=== PATIENT | female | born 1980 | race Two or more races ===

== ENCOUNTER 2024-09-21 12:47 | Inpatient (IN) | payer MEDICAID, OTHER ==
[~2024-09-21] VITALS: Ht 154.9 cm; Wt 109.0 kg
[2024-09-21] VITALS (11 sets, daily range): BP systolic 102–119; BP diastolic 67–86; PULSE 87–112; RESP 17–20; TEMP 97.7–98.4; O2SAT 91–100
--- NOTE | 2024-09-21 13:13 | ECG ---
[facility] Test Date: 2024-09-21 Test Time: 13:07:47 Pat Name: JENNA BANEGAS Department: ER Room: [address] [place] [address] Gender: F Dope Pourer: SOURAV : 1980 Requested By: FOUZIA MONTEIRO Order Number: [id number] Reading MD: Simón Dominguez Measurements Intervals [place] Rate: 112 P: 29 GA: 133 QRS: -83 QRSD: 96 T: -14 QT: 337 QTc: 460 Interpretive Statements Sinus tachycardia Probable left atrial enlargement Left anterior fascicular block Low voltage, precordial leads RSR' in V1 or V2, right VCD or RVH Consider anterior infarct Borderline T abnormalities, inferior leads Electronically Signed On 09-23-2024 19:26:58 PDT by Simón Dominguez Please click the below link to view image of tracing.
--- NOTE | 2024-09-21 13:17 | ED.PDOC ---
SOB-HPI HPI Comments HPI: Poor Historian. Full session dialysis this morning. Denies sick contacts. Past Medical History: Lazy eyes, Past Surgical History: HPI: 43y F who presents to the ED for chief complaint of shortness of breath - pt states she has been having shortness of breath, cough, and nasal congestion for the past 10 days - pt states she has history of COPD on 2 L via nc but in the ED, is noted to have 02 sat ranging between 84 to 88% - pt was placed on 4 L via nc and 02 sat jose to 93% - pt otherwise states she as CKD and gets dialysis Tues, Th and Sat and states she got her fill dialysis today and had 3 L removed today - pt denies any sick contacts at this time - pt otherwise denies any other symptoms at this time Past Medical History: bilateral lazy eyes, HTN, asthma, COPD, CKD Past Surgical History: appendectomy, 2x c-sections Social History: Denies ETOH, smoking, and drug use. Medications: Allergies: denies REVIEW OF SYSTEMS: CONSTITUTIONAL: Denies acute: fever, diaphoresis, chills, generalized weakness. HEAD: Denies acute: headache, photophobia Eyes: Denies acute: Double vision, vision loss, eye pain, eye discharge. EARS: Denies acute: tinnitus, hearing loss, ear discharge, ear pain, THROAT: Denies acute: sore throat, swelling, difficulty swallowing , pain with swallowing, change in voice. NECK: Denies acute: neck pain, neck swelling, stiff neck. HEART: Denies acute : , palpitations, LUNGS: Denies acute: wheezing, hemoptysis ABDOMEN: Denies acute: abdominal pain, Nausea, Vomiting, diarrhea, melena , hematemesis, hematochezia SKIN: Denies acute: rash, redness, lesions, itchiness. EXTREMITIES: Denies acute: calf pain, numbness, tingling, weakness, denies pain in extremity. Denies acute: Low back pain. Neuro: Denies acute: focal neurological deficit, motor or sensory focal neurological deficit, tremors, seizure like activity, confusion, dizziness, change in mental status, loss of bowel or bladder function, cauda equina like symptoms. : Denies acute: dysuria, hematuria, flank pain, increase in urinary frequency. PSYCH: Denies acute: hallucination, suicidal ideation, homicidal ideation. FEMALE: Denies acute: abnormal vaginal bleeding, foul odor, unusual discharge. PHYSICAL EXAM: General: ---mild-----acute distress, awake and alert. Head: normocephalic, atraumatic. Neck: supple, trachea is midline, no swelling. Throat: Normal phonation. Eyes:, no erythema, no purulent discharge, no proptosis, no icterus. Heart: regular tachycardic, no significant murmur appreciated. Lungs: no apparent respiratory distress, Able to speak in full sentences. No wheezing, no rhonchi, no crackles. No stridors Clear to auscultation bilaterally. Abdomen: non tender to palpation, non distended, soft, no guarding, no rebound, + bowel sounds. Noted left anterior chest wall dialysis catheter Neuro: Awake, Alert, oriented to name, self, situation, follows commands GCS=15. Speech is normal. Skin: no petechia, no purpura, no cyanosis, non-pale, not jaundice. Lower extremities: --no - Pitting edema no deformity, no focal swelling, no calf TTP. Makes eye contact. moves all four extremities. Face: no apparent facial droop. ED COURSE: DISCLAIMER: This medical document was created using an electronic medical record system with voice recognition software and computerized dictation system. Although this document has been carefully reviewed, there might still be some phonetic and typographical errors. Occasional wrong-word or "sound-alike" substitutions may have occurred due to the inherent limitations of voice recognition software. These areas are purely typographical due to imperfections of the software programs and do not reflect any compromise in the patient's medical care. Please read the chart carefully and recognize, using context, where these substitutions have occurred. Chief Complaint: Shortness of Breath Time Seen by MD: 13:06 Reviewed notes: Medications, Allergies Information Source: Patient Mode of Arrival: Ambulatory EKG EKG : Pulse Rate (adult): 112 [place]: Normal Cardiac Rhythm: ST Block: None Hypertrophy: None ST: Normal Was a procedure done? Was a procedure done?: No X-Ray, Labs, Meds, VS Vital Signs Date Time Temp Pulse Resp B/P (MAP) Pulse Ox O2 Delivery O2 Flow Rate FiO2 09/21/24 13:30 18 96 Nasal Cannula* 4 36 09/21/24 13:07 112 09/21/24 13:00 98.4 125 24 119/86 (97) 93 98.4 Lab Test 09/21/24 14:06 09/21/24 13:18 09/21/24 13:09 09/21/24 13:01 Range/Units Troponin I High Sensitivity 14 12 </=34 ng/L Sodium Level 136 136-145 mmol/L Potassium Level 4.3 3.5-5.1 mmol/L Chloride Level 100 98-107 mmol/L Carbon Dioxide Level 22 20-31 mmol/L Anion Gap 14 5-15 Blood Urea Nitrogen 38 H 9-23 mg/dL Creatinine 5.71 H 0.550-1.02 mg/dL Glomerular Filtration Rate Calc 9 >90 mL/min BUN/Creatinine Ratio 6.7 L 10.0-20.0 Serum Glucose 186 H 74-106 mg/dL Calcium Level 8.9 8.7-10.4 mg/dL Magnesium Level 1.7 1.6-2.6 mg/dL Total Bilirubin 0.7 0.2-1.0 mg/dL Aspartate Amino Transferase (AST) 12 L 13-40 U/L Alanine Aminotransferase (ALT) 11 7-40 U/L Alkaline Phosphatase 112 46-116 U/L Total Protein 7.7 5.7-8.2 g/dL Albumin 3.8 3.2-4.8 g/dL POC Glucose 193 H 70-106 mg/dl White Blood Count 20.7 H 4.4-10.8 10^3/uL Red Blood Count 5.08 4.0-5.20 10^6/uL Hemoglobin 15.9 12.2-16.2 g/dL Hematocrit 48.3 H 36.0-46.0 % Mean Corpuscular Volume 95.1 80.0-100.0 fL Mean Corpuscular Hemoglobin 31.2 28.0-32.0 pg Mean Corpuscular Hemoglobin Concent 32.8 32.0-36.0 g/dL Red Cell Distribution Width 15.1 H 11.8-14.3 % Platelet Count 376 140-450 10^3/uL Mean Platelet Volume 7.7 6.9-10.8 fL Neutrophils (%) (Auto) 92.3 H 37.0-80.0 % Lymphocytes (%) (Auto) 4.3 L 10.0-50.0 % Monocytes (%) (Auto) 3.0 0.0-12.0 % Eosinophils (%) (Auto) 0.1 0.0-7.0 % Basophils (%) (Auto) 0.3 0.0-2.0 % Neutrophils # (Auto) 19.1 H 1.6-8.6 10 ^3/uL Lymphocytes # (Auto) 0.9 0.4-5.4 10 ^3/uL Monocytes # (Auto) 0.6 0-1.3 10 ^3/uL Eosinophils # (Auto) 0 0-0.8 10 ^3/uL Basophils # (Auto) 0.1 0-0.2 10 ^3/uL Nucleated Red Blood Cells 0.0 % Hemoglobin A1c 6.0 H <5.7 % A1C B-Type Natriuretic Peptide 298.01 0-100 pg/mL Current Medications Medications (Trade) Dose Ordered Sig/Linden Route Start Time Stop Time Status Last Admin Albuterol (Ventolin Medneb) 2.5 mg ONCE ONCE NEB 09/21/24 13:15 09/21/24 13:16 DC 09/21/24 13:28 Ipratropium [place] (Atrovent Medneb) 1 mg ONCE ONCE NEB 09/21/24 13:15 09/21/24 13:16 DC 09/21/24 13:28 Methylprednisolone Sodium Succinate (Solu Medrol) 125 mg ONCE ONCE IV 09/21/24 13:15 09/21/24 13:16 DC 09/21/24 15:16 Piperacillin Sod/ Tazobactam Sod 100 ml @ 100 mls/hr ONCE ONCE IV 09/21/24 14:00 09/21/24 15:09 DC 09/21/24 15:17 [place] [id number] Ph: [phone] DIAGNOSTIC IMAGING Diagnostic Imaging Report : [id number] Signed PATIENT: JENNA BANEGASACCT: [id number] UNIT: [id number] : 1980 LOC: ER ROOM / BED: / AGE / SEX: 43 / F ADM STATUS: REG ER SERVICE 1311 ORDERING PHYSICIAN: FOUZIA MONTEIRO DO PROCEDURE(s): CXRP - CHEST PORTABLE REASON: sob ORDER NUMBER(s): [id number], ACCESSION NUMBER(s): [id number] CHEST RADIOGRAPH Indication: sob Technique: Single frontal view of the chest was obtained Comparison: None FINDINGS: Lines and Tubes: Hemodialysis catheter in place from the left internal jugular vein with the tip at the cavoatrial junction. Lungs: Left lower lobe airspace disease and pleural thickening. Correlate with prior studies Pleura: No effusion. No pneumothorax. Cardiomediastinal contours: Unremarkable Bones: No acute osseous abnormality. IMPRESSION: 1. Hemodialysis catheter in place in the left internal jugular vein with the tip at the cavoatrial junction. 2. Left lower lobe airspace disease and pleural thickening. Can not distinguish acute versus chronic disease without comparison films. ATED BY: ERNIE WILLETT Jr., DO DICTATED DATE/TIME: 09/21/24 1458 SIGNED BY: ERNIE WILLETT Jr., SIGNED DATE/TIME: 09/21/248 CC: Patient Education/Counseling: Diagnosis, Treatment Family Education/Counseling: No Family Present SEPSIS Sepsis Screen Physician Orders Pre[employer]ytics Team Lead (09/21/24 ) Urinalysis (09/21/24 13:11) Chest Portable (09/21/24 13:11) Blood Culture (09/21/24 13:53) Vital Signs Date Time Temp Pulse Resp B/P (MAP) Pulse Ox O2 Delivery O2 Flow Rate FiO2 09/21/24 13:30 18 96 Nasal Cannula* 4 36 09/21/24 13:07 112 09/21/24 13:00 98.4 125 24 119/86 (97) 93 98.4 Laboratory Tests Test 09/21/24 13:01 White Blood Count 20.7 10^3/uL (4.4-10.8) H Medications Medications Dose Ordered Sig/Linden Route Start Time Stop Time Status Last Admin Dose Admin Albuterol 2.5 mg ONCE ONCE NEB 09/21/24 13:15 09/21/24 13:16 DC 09/21/24 13:28 Ipratropium [place] 1 mg ONCE ONCE NEB 09/21/24 13:15 09/21/24 13:16 DC 09/21/24 13:28 Methylprednisolone Sodium Succinate 125 mg ONCE ONCE IV 09/21/24 13:15 09/21/24 13:16 DC 09/21/24 15:16 Piperacillin Sod/ Tazobactam Sod 100 ml @ 100 mls/hr ONCE ONCE IV 09/21/24 14:00 09/21/24 15:09 DC 09/21/24 15:17 Departure 1 Departure Time of Disposition: 13:52 Impression: Primary Impression: COPD exacerbation Additional Impression: Leukocytosis Disposition: ADMITTED INPATIENT Admit to: Tele Condition: Guarded Discharged With: Self Critical Care Note Critical Care Time?: No Heart Score Heart Score: Heart Score Response (Comments) Value History Slightly Suspicious 0 EKG Normal 0 Age <45 0 Risk Factors 1 or 2 risk factors 1 Troponin Normal limit 0 Total 1 I personally scribed for FOUZIA MONTEIRO DO ([email or web address]) on 09/21/24 at 13:17. Electronically submitted by Jeff Landa (Red Mapache). I personally scribed for FOUZIA MONTEIRO DO ([email or web address]) on 09/21/24 at 15:39. Electronically submitted by Jeff Landa (Red Mapache). I personally scribed for FOUZIA MONTEIRO DO ([email or web address]) on 09/21/24 at 21:46. Electronically submitted by Jeff Landa (Red Mapache). FOUZIA MONTEIRO DO Sep 21, 2024 13:17
[2024-09-21] MEDS: ALBUTEROL SULF 2.5 MG/0.5ML(0.5%) NEB SOLN NEB ONE (13:28)
[2024-09-21] MEDS: IPRATROPIUM BROM 0.5 MG/2.5ML INH SOL NEB ONE (13:28)
[2024-09-21 13:29] LABS: Hematocrit 48.3 % (36.0-46.0); Hemoglobin 15.9 g/dL (12.2-16.2); Mean Corpuscular Hemoglobin 31.2 pg (28.0-32.0); Mean Corpuscular Volume 95.1 fL (80.0-100.0); Nucleated Red Blood Cells % 0.0 %
[2024-09-21 13:50] LABS: Alanine Aminotransferase 11 U/L (7-40); Alkaline Phosphatase 112 U/L (46-116); Anion Gap 14 (5-15); BUN/Creatinine Ratio 6.7 (10.0-20.0); Calcium 8.9 mg/dL (8.7-10.4); Carbon Dioxide 22 mmol/L (20-31); Chloride 100 mmol/L (98-107); Magnesium 1.7 mg/dL (1.6-2.6); Potassium 4.3 mmol/L (3.5-5.1); Total Protein 7.7 g/dL (5.7-8.2)
[2024-09-21 13:51] LABS: Albumin 3.8 g/dL (3.2-4.8); Bilirubin, Total 0.7 mg/dL (0.2-1.0); Blood Urea Nitrogen 38 mg/dL (9-23); Glucose 186 mg/dL (74-106); Sodium 136 mmol/L (136-145)
--- NOTE | 2024-09-21 15:00 | DVH ---
CHEST RADIOGRAPH Indication: sob Technique: Single frontal view of the chest was obtained Comparison: None FINDINGS: Lines and Tubes: Hemodialysis catheter in place from the left internal jugular vein with the tip at t he cavoatrial junction. Lungs: Left lower lobe airspace disease and pleural thickening. Correlate with prior studies Pleura: No effusion. No pneumothorax. Cardiomediastinal contours: Unremarkable Bones: No acute osseous abnormality. IMPRESSION: 1. Hemodialysis catheter in place in the left internal jugular vein with the tip at the cavoatrial ju nction. 2. Left lower lobe airspace disease and pleural thickening. Can not distinguish acute versus chronic disease without comparison films.
[2024-09-21] MEDS: methylPREDNISolone SOD SUCC 125 MG/2 ML VL IV ONE (15:16)
[2024-09-21] MEDS: PIPERACILLIN-TAZOB 3.375GM 100 ML IV ONE (15:17)
[2024-09-21] MEDS ORDERED: DEXTROSE (50%) 50ML SYRG IV PRN (15:30)
[2024-09-21] MEDS ORDERED: ONDANSETRON HCL 4 MG/2 ML VIAL IV PRN (15:30)
[2024-09-21] MEDS ORDERED: ACETAMINOPHEN 325 MG TAB PO PRN (15:30)
[2024-09-21] MEDS ORDERED: HYDROcodone-ACET 5/325MG TAB PO PRN (15:30)
--- NOTE | 2024-09-21 15:33 | DVHHP2 ---
History of Present Illness Reason for Visit: Shortness of breath History of Present Illness Kathryn Hyman is a 43-year-old female with past medical history of hypertension, asthma, ESRD on HD (/), , and possible diabetes who presents to the ED with shortness of breath x 10 days. Patient reports that she saw her primary and was prescribed medications but has not yet picked them up. She also reports that she has been coughing up yellow phlegm for the last 5 days. She states that she is on continuous oxygen 2 L nasal cannula at home. Patient reports that when she does breathe in and out there is some discomfort in her chest but not chest pain. Patient also reports that she gets dialysis through [facility] and takes medications but does not know the names. Patient denies any recent sick contacts, recent trauma or injury, recent ingestion of spoiled food, recent travels, chest pain, fever, chills, lightheadedness, weakness, dizziness, abdominal pain, nausea, vomiting, diarrhea, or urinary symptoms. Cardiovascular: HTN Pulmonary: Asthma Renal/: Chronic renal failure Endocrine: Diabetes Past Surgical History: Family History: DM, Other (Mom and dad with diabetes. Mom with kidney failure.) Smoke: No ALCOHOL: none Drugs: None Lives: with Family Domestic Violence: Neg Review of Systems Respiratory: Shortness of breath Allergies: Coded Allergies: NO KNOWN ALLERGIES (Unverified , 09/21/24) Exam Vital Signs Vital Signs Date Time Temp Pulse Resp B/P (MAP) Pulse Ox O2 Delivery O2 Flow Rate FiO2 09/21/24 13:30 18 96 Nasal Cannula* 4 36 09/21/24 13:07 112 09/21/24 13:00 98.4 119/86 (97) 98.4 General Appearance: Alert, Oriented X3, Cooperative, mild distress HEENT: Atraumatic, PERRLA, EOMI Respiratory: Normal air movement Cardiovascular: Normal S1, Normal S2 Abdominal: Normal bowel sounds, Soft Extremities: Normal pulses Skin: No significant lesion Neuro: Normal gait, Normal speech, Strength at 5/5 X4 ext, Normal tone, Sensation intact Psych/Mental Status: Mental status NL, Mood NL Labs/Xrays Labs Test 09/21/24 14:06 09/21/24 13:18 09/21/24 13:09 7/12/25 13:01 Range/Units Troponin I High Sensitivity 14 </=34 ng/L Sodium Level 136 136-145 mmol/L Potassium Level 4.3 3.5-5.1 mmol/L Chloride Level 100 98-107 mmol/L Carbon Dioxide Level 22 20-31 mmol/L Anion Gap 14 5-15 Blood Urea Nitrogen 38 H 9-23 mg/dL Creatinine 5.71 H 0.550-1.02 mg/dL Glomerular Filtration Rate Calc 9 >90 mL/min BUN/Creatinine Ratio 6.7 L 10.0-20.0 Serum Glucose 186 H 74-106 mg/dL Calcium Level 8.9 8.7-10.4 mg/dL Magnesium Level 1.7 1.6-2.6 mg/dL Total Bilirubin 0.7 0.2-1.0 mg/dL Aspartate Amino Transferase (AST) 12 L 13-40 U/L Alanine Aminotransferase (ALT) 11 7-40 U/L Alkaline Phosphatase 112 46-116 U/L Total Protein 7.7 5.7-8.2 g/dL Albumin 3.8 3.2-4.8 g/dL POC Glucose 193 H 70-106 mg/dl White Blood Count 20.7 H 4.4-10.8 10^3/uL Red Blood Count 5.08 4.0-5.20 10^6/uL Hemoglobin 15.9 12.2-16.2 g/dL Hematocrit 48.3 H 36.0-46.0 % Mean Corpuscular Volume 95.1 80.0-100.0 fL Mean Corpuscular Hemoglobin 31.2 28.0-32.0 pg Mean Corpuscular Hemoglobin Concent 32.8 32.0-36.0 g/dL Red Cell Distribution Width 15.1 H 11.8-14.3 % Platelet Count 376 140-450 10^3/uL Mean Platelet Volume 7.7 6.9-10.8 fL Neutrophils (%) (Auto) 92.3 H 37.0-80.0 % Lymphocytes (%) (Auto) 4.3 L 10.0-50.0 % Monocytes (%) (Auto) 3.0 0.0-12.0 % Eosinophils (%) (Auto) 0.1 0.0-7.0 % Basophils (%) (Auto) 0.3 0.0-2.0 % Neutrophils # (Auto) 19.1 H 1.6-8.6 10 ^3/uL Lymphocytes # (Auto) 0.9 0.4-5.4 10 ^3/uL Monocytes # (Auto) 0.6 0-1.3 10 ^3/uL Eosinophils # (Auto) 0 0-0.8 10 ^3/uL Basophils # (Auto) 0.1 0-0.2 10 ^3/uL Nucleated Red Blood Cells 0.0 % B-Type Natriuretic Peptide 298.01 0-100 pg/mL CHEST RADIOGRAPH Indication: sob Technique: Single frontal view of the chest was obtained Comparison: None FINDINGS: Lines and Tubes: Hemodialysis catheter in place from the left internal jugular vein with the tip at the cavoatrial junction. Lungs: Left lower lobe airspace disease and pleural thickening. Correlate with prior studies Pleura: No effusion. No pneumothorax. Cardiomediastinal contours: Unremarkable Bones: No acute osseous abnormality. IMPRESSION: 1. Hemodialysis catheter in place in the left internal jugular vein with the tip at the cavoatrial junction. 2. Left lower lobe airspace disease and pleural thickening. Can not distinguish acute versus chronic disease without comparison films. SEPSIS Sepsis Screen Date sepsis recognized/suspect: Sep 21, 2024 Time Sepsis recognized/suspect: 1300 Recent Procedure: No On Antibiotic Therapy: No Respiratory Rate >20: Yes Heart Rate >90: Yes Temp<36 C (96.8 F) or >38.3 C: No SBP <90 or MAP <65 mmHG: No New Acute Mental Status Change: No Is the patient on CPAP, BIPAP,: No Physician Orders Stacker Straightener (09/21/24 ) Urinalysis (09/21/24 13:11) Chest Portable (09/21/24 13:11) Troponin-I Hs (09/21/24 16:11) Covid19 Antigen Lauren (09/21/24 ) Rapid Influenza A&B (09/21/24 13:52) Blood Culture (09/21/24 13:53) Vital Signs Date Time Temp Pulse Resp B/P (MAP) Pulse Ox O2 Delivery O2 Flow Rate FiO2 09/21/24 13:30 18 96 Nasal Cannula* 4 36 09/21/24 13:07 112 09/21/24 13:00 98.4 125 24 119/86 (97) 93 98.4 Laboratory Tests Test 09/21/24 13:01 White Blood Count 20.7 10^3/uL (4.4-10.8) H Medications Medications Dose Ordered Sig/Linden Route Start Time Stop Time Status Last Admin Dose Admin Albuterol 2.5 mg ONCE ONCE NEB 09/21/24 13:15 09/21/24 13:16 DC 09/21/24 13:28 2.5 MG Ipratropium [place] 1 mg ONCE ONCE NEB 09/21/24 13:15 09/21/24 13:16 DC 09/21/24 13:28 1 MG Methylprednisolone Sodium Succinate 125 mg ONCE ONCE IV 09/21/24 13:15 09/21/24 13:16 DC 09/21/24 15:16 125 MG Piperacillin Sod/ Tazobactam Sod 100 ml @ 100 mls/hr ONCE ONCE IV 09/21/24 14:00 09/21/24 15:09 DC 09/21/24 15:17 100 MLS/HR Assessment/Plan Assessment/Plan Assessment Acute on chronic respiratory failure likely due to pneumonia Acute on chronic asthma exacerbation Leukocytosis likely due to pneumonia Costochondritis ESRD on HD (T//) ?Diabetes Morbid obesity History of hypertension History of Plan Admit to [facility] IV antibiotics-ceftriaxone + azithromycin Zosyn given in ED BNP noted Chest x-ray noted Steroids Blood cultures Flu test COVID test Troponin noted EKG Mag level Hemoglobin A1c ISS and Accu-Cheks Diet DVT prophylaxis-not indicated patient ambulating PUD prophylaxis-not indicated no history of GERD or GI bleed Discussed plan of care with patient and nurse RN to recon medications Nephro consult Counseled patient on lifestyle modifications, diet, and exercise [id number] Preventive counseling healthy eating habits, physical activity, and regular checkups Plan discussed with: Patient Date of Service: Sep 21, 2024 Billing Provider: MORENA DELCID Common Visit Codes: [id number] INP/OBS CARE (HIGH) Secondary Visit Codes: [id number] COUNSELING IND MORENA DELCID Sep 21, 2024 15:33
[2024-09-21] MEDS: cefTRIAXone 1GM/50ML D5W 50 ML IV SCH (16:30)
[2024-09-21] MEDS: AZITHROMYCIN 500MG/ 250ML 250 ML IV SCH (16:55)
[2024-09-21 16:57] LABS: COVID19 ANTIGEN SOFIA FIA NEGATIVE (NEGATIVE)
[2024-09-21] MEDS: ACCU-CHEK COMFORT CURVE STRIP VI SCH (17:09)
[2024-09-21] MEDS: InsuLIN REG 1unit/0.01ml Soln (100units/ml) SC SCH (17:10)
[2024-09-21] MEDS: ALBUTEROL SULF 2.5 MG/0.5ML(0.5%) NEB SOLN NEB SCH (19:00)
[2024-09-21] MEDS: IPRATROPIUM BROM 0.5 MG/2.5ML INH SOL NEB SCH (19:00)
[2024-09-21] MEDS: methylPREDNISolone SOD SUCC 125 MG/2 ML VL IV SCH (21:29)
[2024-09-22] VITALS (18 sets, daily range): BP systolic 101–120; BP diastolic 66–90; PULSE 72–124; RESP 16–22; TEMP 96.4–98; O2SAT 91–98
[2024-09-22 06:07] LABS: Hematocrit 43.9 % (36.0-46.0); Hemoglobin 14.5 g/dL (12.2-16.2); Mean Corpuscular Hemoglobin 31.3 pg (28.0-32.0); Mean Corpuscular Volume 95.1 fL (80.0-100.0); Nucleated Red Blood Cells % 0.0 %
[2024-09-22 06:31] LABS: Alkaline Phosphatase 93 U/L (46-116); BUN/Creatinine Ratio 8.2 (10.0-20.0); Calcium 9.0 mg/dL (8.7-10.4); Chloride 99 mmol/L (98-107); Potassium 4.9 mmol/L (3.5-5.1); Total Protein 7.8 g/dL (5.7-8.2)
[2024-09-22 06:32] LABS: Alanine Aminotransferase < 9 U/L (7-40); Albumin 3.8 g/dL (3.2-4.8); Blood Urea Nitrogen 60 mg/dL (9-23); Glucose 181 mg/dL (74-106); Sodium 135 mmol/L (136-145)
[2024-09-22 06:33] LABS: Bilirubin, Total 0.2 mg/dL (0.2-1.0)
[2024-09-22 06:44] LABS: Anion Gap 16 (5-15); Carbon Dioxide 20 mmol/L (20-31)
--- NOTE | 2024-09-22 13:41 | DVHPN2 ---
Reviewed: Care Plan Changes from previous H/P or p: No Changes Respiratory: Shortness of breath Objective Vitals Vital Signs Date Time Temp Pulse Resp B/P (MAP) Pulse Ox O2 Delivery O2 Flow Rate FiO2 09/22/24 12:24 96.4 81 20 120/90 (100) 91 96.4 09/22/24 10:07 Nasal Cannula* 3 32 Intake/Output Intake and Output 09/22/24 07:00 Intake Total 650 ml Balance 650 ml Intake Oral 600 ml IV Total 50 ml # Voids 1 # Bowel Movements 1 Medications Current Medications Medications Dose Ordered Sig/Lind[place] Route Start Time Stop Time Status Last Admin Dose Admin Acetaminophen/ Hydrocodone Bitart 1 tab Q4HP PRN PO 09/21/24 15:30 Ondansetron HCl 4 mg Q4HP PRN IV 09/21/24 15:30 Acetaminophen 650 mg Q6HP PRN PO 09/21/24 15:30 Diagnostic Test (Pha) 1 strip ACHS 09/21/24 17:00 09/22/24 11:35 1 STRIP Insulin Human Regular ACHS SC 09/21/24 17:00 09/22/24 11:31 4 UNITS Dextrose 50 ml UD PRN IV 09/21/24 15:30 Ceftriaxone Sodium 50 ml @ 100 mls/hr DAILY@09 IV 09/21/24 15:30 09/22/24 09:31 100 MLS/HR Azithromycin 250 ml @ 125 mls/hr DAILY IV 09/21/24 15:30 09/22/24 11:35 125 MLS/HR Methylprednisolone Sodium Succinate 80 mg BID IV 09/21/24 22:00 09/22/24 09:31 80 MG Albuterol 2.5 mg Q4HWA NEB 09/21/24 18:00 09/22/24 10:07 2.5 MG Ipratropium [place] 0.5 mg Q4HWA NEB 09/21/24 18:00 09/22/24 10:07 0.5 MG Laboratory Results Laboratory Tests 09/22/24 05:14 Chemistry Test 09/22/24 05:14 Albumin 3.8 g/dL (3.2-4.8) Calcium Level 9.0 mg/dL (8.7-10.4) Total Protein 7.8 g/dL (5.7-8.2) LFT Test 09/22/24 05:14 Alanine Aminotransferase (ALT) < 9 U/L (7-40) Alkaline Phosphatase 93 U/L (46-116) Aspartate Amino Transferase (AST) < 8 U/L (13-40) L Total Bilirubin 0.2 mg/dL (0.2-1.0) Labs and/or images reviewed: Labs reviewed by me, Image(s) reviewed by me Assessment/Plan Assessment/Plan Sepsis with the elevated white count 55113 hypoxia secondary to pneumonia Acute hypoxic respiratory failure oxygen by nasal cannula Community-acquired left lower pneumonia Gram-positive/Gram-negative: Rocephin azithromycin ESRD on hemodialysis: Consult by Hypertension Asthma Diabetes type 2 Blanka test negative Flu test negative Time spent 70 minutes Advanced care planning time 20 minutes Patient is full code Plan discussed with: Patient Date of Service: Sep 22, 2024 Billing Provider: WESLEY GORDON MD Common Visit Codes: [id number] CARE 30-74 MIN WESLEY GORDON MD Sep 22, 2024 13:41
[2024-09-22] MEDS: ALBUMIN 25% 100 ML IV STA (16:24)
[2024-09-22] MEDS: SODIUM CHL 0.9% 1000 ML BAG XX ONE (16:38)
--- NOTE | 2024-09-22 19:48 | DVHINCON2 ---
Date of service: Sep 22, 2024 Referring Physician jesús Reason for Consultation esrd History of Present Illness 43 years old female with past medical history of hypertension, ESRD on dialysis, asthma, chronic hypoxic respiratory failure presented with chief complaints of shortness of breath Patient had a full dialysis treatment on Monday as outpatient she reports cough, also reports left-sided chest pain Past Medical History As per HPI Past Surgical History As per HPI Allergies: Coded Allergies: NO KNOWN ALLERGIES (Unverified , 09/21/24) Current Medications Current Medications Medications (Trade) Dose Ordered Sig/Linden Route PRN Reason Start Time Stop Time Status Last Admin Methylprednisolone Sodium Succinate (Solu Medrol) 80 mg BID IV 09/21/24 22:00 09/22/24 09:31 Albumin Human 100 ml @ 100 mls/hr Q15MP STAT IV 09/22/24 16:24 09/22/24 17:23 DC Social History Denies any Review of Systems As per HPI H&P Exam Vital Signs/I&O Vital Sign Date Time Temp Pulse Resp B/P (MAP) Pulse Ox O2 Delivery O2 Flow Rate FiO2 09/22/24 18:37 88 20 98 09/22/24 18:31 Nasal Cannula 3.0 09/22/24 18:31 32 09/22/24 16:20 97.3 114/79 (91) 97.3 Intake and Output 09/21/24 09/22/24 19:00 07:00 Intake Total 50 ml 600 ml Balance 50 ml 600 ml Intake Oral 600 ml IV Total 50 ml # Voids 1 # Bowel Movements 1 Physical Exam General-not in any distress HEENT-normocephalic, no icterus, no pallor, neck supple Respiratory-fair air entry bilateral, [id number] heard, no murmurs appreciated Abdominal-soft, nontender, nondistended Musculoskeletal-no pedal edema, no calf tenderness Genitourinary-deferred Neuro-awake alert oriented x3, Psychiatric-not agitated, cooperative, Labs/Diagnostic Data Labs/Diagnostic Data Laboratory Tests Test 09/22/24 05:54 09/22/24 05:14 09/21/24 17:04 09/21/24 16:13 Range/Units POC Glucose 172 H 172 H 70-106 mg/dl White Blood Count 19.0 H 4.4-10.8 10^3/uL Red Blood Count 4.62 4.0-5.20 10^6/uL Hemoglobin 14.5 12.2-16.2 g/dL Hematocrit 43.9 36.0-46.0 % Mean Corpuscular Volume 95.1 80.0-100.0 fL Mean Corpuscular Hemoglobin 31.3 28.0-32.0 pg Mean Corpuscular Hemoglobin Concent 33.0 32.0-36.0 g/dL Red Cell Distribution Width 15.0 H 11.8-14.3 % Platelet Count 379 140-450 10^3/uL Mean Platelet Volume 7.9 6.9-10.8 fL Neutrophils (%) (Auto) 95.4 H 37.0-80.0 % Lymphocytes (%) (Auto) 2.7 L 10.0-50.0 % Monocytes (%) (Auto) 1.9 0.0-12.0 % Eosinophils (%) (Auto) 0.0 0.0-7.0 % Basophils (%) (Auto) 0.0 0.0-2.0 % Neutrophils # (Auto) 18.1 H 1.6-8.6 10 ^3/uL Lymphocytes # (Auto) 0.5 0.4-5.4 10 ^3/uL Monocytes # (Auto) 0.4 0-1.3 10 ^3/uL Eosinophils # (Auto) 0 0-0.8 10 ^3/uL Basophils # (Auto) 0 0-0.2 10 ^3/uL Nucleated Red Blood Cells 0.0 % Sodium Level 135 L 136-145 mmol/L Potassium Level 4.9 3.5-5.1 mmol/L Chloride Level 99 98-107 mmol/L Carbon Dioxide Level 20 20-31 mmol/L Anion Gap 16 H 5-15 Blood Urea Nitrogen 60 #H 9-23 mg/dL Creatinine 7.33 H 0.550-1.02 mg/dL Glomerular Filtration Rate Calc 7 >90 mL/min BUN/Creatinine Ratio 8.2 L 10.0-20.0 Serum Glucose 181 H 74-106 mg/dL Calcium Level 9.0 8.7-10.4 mg/dL Total Bilirubin 0.2 0.2-1.0 mg/dL Aspartate Amino Transferase (AST) < 8 L 13-40 U/L Alanine Aminotransferase (ALT) < 9 7-40 U/L Alkaline Phosphatase 93 46-116 U/L Total Protein 7.8 5.7-8.2 g/dL Albumin 3.8 3.2-4.8 g/dL Influenza Type A Antigen Negative Negative Influenza Type B Antigen Negative Negative SARS-CoV-2 Antigen (Rapid) Negative NEGATIVE Test 09/21/24 16:07 09/21/24 14:06 09/21/24 13:18 09/21/24 13:09 Range/Units Troponin I High Sensitivity 12 14 12 </=34 ng/L Sodium Level 136 136-145 mmol/L Potassium Level 4.3 3.5-5.1 mmol/L Chloride Level 100 98-107 mmol/L Carbon Dioxide Level 22 20-31 mmol/L Anion Gap 14 5-15 Blood Urea Nitrogen 38 H 9-23 mg/dL Creatinine 5.71 H 0.550-1.02 mg/dL Glomerular Filtration Rate Calc 9 >90 mL/min BUN/Creatinine Ratio 6.7 L 10.0-20.0 Serum Glucose 186 H 74-106 mg/dL Calcium Level 8.9 8.7-10.4 mg/dL Magnesium Level 1.7 1.6-2.6 mg/dL Total Bilirubin 0.7 0.2-1.0 mg/dL Aspartate Amino Transferase (AST) 12 L 13-40 U/L Alanine Aminotransferase (ALT) 11 7-40 U/L Alkaline Phosphatase 112 46-116 U/L Total Protein 7.7 5.7-8.2 g/dL Albumin 3.8 3.2-4.8 g/dL POC Glucose 193 H 70-106 mg/dl Test 09/21/24 13:01 Range/Units White Blood Count 20.7 H 4.4-10.8 10^3/uL Red Blood Count 5.08 4.0-5.20 10^6/uL Hemoglobin 15.9 12.2-16.2 g/dL Hematocrit 48.3 H 36.0-46.0 % Mean Corpuscular Volume 95.1 80.0-100.0 fL Mean Corpuscular Hemoglobin 31.2 28.0-32.0 pg Mean Corpuscular Hemoglobin Concent 32.8 32.0-36.0 g/dL Red Cell Distribution Width 15.1 H 11.8-14.3 % Platelet Count 376 140-450 10^3/uL Mean Platelet Volume 7.7 6.9-10.8 fL Neutrophils (%) (Auto) 92.3 H 37.0-80.0 % Lymphocytes (%) (Auto) 4.3 L 10.0-50.0 % Monocytes (%) (Auto) 3.0 0.0-12.0 % Eosinophils (%) (Auto) 0.1 0.0-7.0 % Basophils (%) (Auto) 0.3 0.0-2.0 % Neutrophils # (Auto) 19.1 H 1.6-8.6 10 ^3/uL Lymphocytes # (Auto) 0.9 0.4-5.4 10 ^3/uL Monocytes # (Auto) 0.6 0-1.3 10 ^3/uL Eosinophils # (Auto) 0 0-0.8 10 ^3/uL Basophils # (Auto) 0.1 0-0.2 10 ^3/uL Nucleated Red Blood Cells 0.0 % Hemoglobin A1c 6.0 H <5.7 % A1C B-Type Natriuretic Peptide 298.01 0-100 pg/mL Assessment ESRD on dialysis Acute on chronic hypoxic respiratory failure Pneumonia Morbid obesity Recommendations Extra dialysis treatment today next dialysis will be on Monday if patient is still here Patient clotted lines during dialysis despite getting heparin loading dose,,, she will need loading dose and maintenance dose heparin on next dialysis treatment Antibiotics for pneumonia We will follow closely Plan discussed with: Patient BERNABE GO MD Sep 22, 2024 19:48
[2024-09-23] VITALS (17 sets, daily range): BP systolic 93–114; BP diastolic 61–76; PULSE 83–102; RESP 18–20; TEMP 97–98.6; O2SAT 90–98
[2024-09-23 10:14] LABS: Hepatitis B Surface Antigen Negative (Negative)
[2024-09-23 10:38] LABS: Hepatitis C Antibody Negative (Negative)
--- NOTE | 2024-09-23 10:51 | DVHPN2 ---
Reviewed: Care Plan Changes from previous H/P or p: No Changes Respiratory: Shortness of breath Objective Vitals Vital Signs Date Time Temp Pulse Resp B/P (MAP) Pulse Ox O2 Delivery O2 Flow Rate FiO2 09/23/24 10:34 99 18 96 09/23/24 10:28 Nasal Cannula 4.0 09/23/24 10:28 36 09/23/24 08:52 97.0 109/75 (86) 97.0 Intake/Output Intake and Output 09/23/24 07:00 Intake Total 2100 ml Balance 2100 ml Intake Oral 1800 ml IV Total 300 ml # Voids 4 # Bowel Movements 1 Medications Current Medications Medications Dose Ordered Sig/Linden Route Start Time Stop Time Status Last Admin Dose Admin Acetaminophen/ Hydrocodone Bitart 1 tab Q4HP PRN PO 09/21/24 15:30 Ondansetron HCl 4 mg Q4HP PRN IV 09/21/24 15:30 Acetaminophen 650 mg Q6HP PRN PO 09/21/24 15:30 Diagnostic Test (Pha) 1 strip ACHS 09/21/24 17:00 09/23/24 06:23 1 STRIP Insulin Human Regular ACHS SC 09/21/24 17:00 09/23/24 06:23 6 UNITS Dextrose 50 ml UD PRN IV 09/21/24 15:30 Ceftriaxone Sodium 50 ml @ 100 mls/hr DAILY@09 IV 09/21/24 15:30 09/23/24 08:38 100 MLS/HR Azithromycin 250 ml @ 125 mls/hr DAILY IV 09/21/24 15:30 09/23/24 10:33 125 MLS/HR Methylprednisolone Sodium Succinate 80 mg BID IV 09/21/24 22:00 09/23/24 08:38 80 MG Albuterol 2.5 mg Q4HWA NEB 09/21/24 18:00 09/23/24 10:26 2.5 MG Ipratropium [place] 0.5 mg Q4HWA NEB 09/21/24 18:00 09/23/24 10:26 0.5 MG Laboratory Results Laboratory Tests 09/22/24 05:14 Microbiology Microbiology Date/Time Source Procedure Growth Status 09/21/24 14:06 Blood Blood Culture - Preliminary NO GROWTH AFTER 24 HOURS OF INCUBATION. Resulted Labs and/or images reviewed: Labs reviewed by me, Image(s) reviewed by me Assessment/Plan Assessment/Plan Sepsis with elevated white count 71945 hypoxia secondary to pneumonia Acute hypoxic respiratory failure oxygen by nasal cannula Community-acquired left lower pneumonia Gram-positive/Gram-negative: Rocephin azithromycin ESRD on hemodialysis: Consult by Use of home oxygen 2 L per mt Hypertension Asthma Diabetes type 2 Blanka test negative Flu test negative Time spent 60 minutes Advanced care planning time 20 minutes Patient is full code Plan discussed with: Patient Date of Service: Sep 23, 2024 Billing Provider: WESLEY GORDON MD Common Visit Codes: [id number] CARE 30-74 MIN WESLEY GORDON MD Sep 23, 2024 10:51
--- NOTE | 2024-09-23 11:10 | DVHPN2 ---
Progress Note Date Seen: Sep 23, 2024 Medical Necessity Reason Pt with a Central, PICC or Fol: No Subjective Patient reports: No new complaints Objective vital signs Vital Sign Date Time Temp Pulse Resp B/P (MAP) Pulse Ox O2 Delivery O2 Flow Rate FiO2 09/23/24 10:34 99 18 96 09/23/24 10:28 Nasal Cannula 4.0 09/23/24 10:28 36 09/23/24 08:52 97.0 109/75 (86) 97.0 Total Intake and Output 09/22/24 09/22/24 09/23/24 15:00 23:00 07:00 Intake Total 300 ml 1000 ml 800 ml Balance 300 ml 1000 ml 800 ml medications Current Medications Medications Dose Ordered Sig/Linden Route Start Time Stop Time Status Last Admin Dose Admin Acetaminophen/ Hydrocodone Bitart 1 tab Q4HP PRN PO 09/21/24 15:30 Ondansetron HCl 4 mg Q4HP PRN IV 09/21/24 15:30 Acetaminophen 650 mg Q6HP PRN PO 09/21/24 15:30 Diagnostic Test (Pha) 1 strip ACHS 09/21/24 17:00 09/23/24 06:23 1 STRIP Insulin Human Regular ACHS SC 09/21/24 17:00 09/23/24 06:23 6 UNITS Dextrose 50 ml UD PRN IV 09/21/24 15:30 Ceftriaxone Sodium 50 ml @ 100 mls/hr DAILY@09 IV 09/21/24 15:30 09/23/24 08:38 100 MLS/HR Azithromycin 250 ml @ 125 mls/hr DAILY IV 09/21/24 15:30 09/23/24 10:33 125 MLS/HR Methylprednisolone Sodium Succinate 80 mg BID IV 09/21/24 22:00 09/23/24 08:38 80 MG Albuterol 2.5 mg Q4HWA NEB 09/21/24 18:00 09/23/24 10:26 2.5 MG Ipratropium [place] 0.5 mg Q4HWA NEB 09/21/24 18:00 09/23/24 10:26 0.5 MG Examination: GENERAL:Normal, LUNGS:Abnormal, CVS:Normal laboratory and microbiology Laboratory Tests 09/22/24 05:14 Test 09/22/24 05:14 Range/Units Serum Glucose 181 H 74-106 mg/dL Microbiology Date/Time Source Procedure Growth Status 09/21/24 14:06 Blood Blood Culture - Preliminary NO GROWTH AFTER 24 HOURS OF INCUBATION. Resulted Problem List/Assessment/Plan Problem List/Assessment/Plan ESRD on dialysis Acute on chronic hypoxic respiratory failure Pneumonia Morbid obesity needs labs today Antibiotics for pneumonia Hd tentatively scheduled tomorrow monitor K level today [facility] PRN change diet to renal diet Plan discussed with: Patient My Orders My Orders Orders - ADEBAYO FINLEY MD Procedure Category Date Status Time Basic Metabolic Panel LAB 09/24/24 Verified 04:00 Basic Metabolic Panel LAB 09/23/24 Transmitted 11:04 Phosphorus LAB 09/24/24 Verified 04:00 Hemodialysis Orders ORDERS 09/24/24 Transmitted 07:00 Dialysis Nursing OSWALDO 09/24/24 Transmitted Message 07:00 Heparin Sodium PHA 09/24/24 Transmitted (Porcine) 07:00 Heparin Sodium PHA 09/24/24 Transmitted (Porcine) 07:00 Heparin Sodium PHA 09/24/24 Transmitted (Porcine) 07:00 Sodium Chloride 0.9% PHA 09/24/24 Transmitted 07:00 Document Fluid Input OSWALDO 09/24/24 Transmitted And Outpu 07:00 Retacrit 10,000unit PHA 09/24/24 Transmitted Sc Xone 21:00 Cardiac DIET 09/23/24 Transmitted Diet-2gna,Lofat,Lochol Lunch Communication Order ORDERS 09/23/24 Transmitted 11:04 ADEBAYO FINLEY MD Sep 23, 2024 11:10
[2024-09-23 13:02] LABS: Anion Gap 16 (5-15); Calcium 8.9 mg/dL (8.7-10.4)
[2024-09-23 13:07] LABS: BUN/Creatinine Ratio 8.1 (10.0-20.0)
[2024-09-23 13:11] LABS: Blood Urea Nitrogen 59 mg/dL (9-23); Carbon Dioxide 17 mmol/L (20-31); Chloride 96 mmol/L (98-107); Glucose 302 mg/dL (74-106); Potassium 5.2 mmol/L (3.5-5.1); Sodium 129 mmol/L (136-145)
[2024-09-23] MEDS: SODIUM ZIRCONIUM CYCL 10 GM PAK PO SCH (16:19)
[2024-09-23] MEDS: DEXTROSE (50%) 50ML SYRG IV ONE (16:19)
[2024-09-23] MEDS: InsuLIN REG 1unit/0.01ml Soln (100units/ml) IV ONE (16:19)
[2024-09-23] MEDS: SODIUM BICARB 8.4% 50Meq/50ml SYR Vial IV ONE (16:28)
--- NOTE | 2024-09-23 16:36 | ECG ---
[facility] Test Date: 2024-09-23 Test Time: 16:18:42 Pat Name: JENNA BANEGAS Department: Respiratoy Room: [address] [place] [address] 1 Gender: F Medical Lab Technologist: Naun : 1980 Requested By: ADEBAYO FINLEY Order Number: [id number] Reading MD: Simón Dominguez Measurements Intervals [place] Rate: 85 P: 49 RI: 133 QRS: -8 QRSD: 99 T: 6 QT: 397 QTc: 472 Interpretive Statements Sinus rhythm Atrial premature complex Probable left atrial enlargement Electronically Signed On 09-23-2024 19:41:01 PDT by Simón Dominguez Please click the below link to view image of tracing.
[2024-09-24] VITALS (20 sets, daily range): BP systolic 100–120; BP diastolic 64–78; PULSE 76–94; RESP 14–18; TEMP 96.8–98.1; O2SAT 92–100
[2024-09-24 06:26] LABS: Anion Gap 16 (5-15); Carbon Dioxide 23 mmol/L (20-31); Potassium 4.4 mmol/L (3.5-5.1)
[2024-09-24 06:29] LABS: Calcium 7.6 mg/dL (8.7-10.4); Chloride 92 mmol/L (98-107); Sodium 131 mmol/L (136-145)
[2024-09-24 06:32] LABS: BUN/Creatinine Ratio 10.7 (10.0-20.0)
[2024-09-24 06:36] LABS: Glucose 197 mg/dL (74-106)
[2024-09-24 06:37] LABS: Blood Urea Nitrogen 92 mg/dL (9-23)
[2024-09-24] MEDS ORDERED: SODIUM CHL 0.9% 1000 ML BAG XX ONE (07:00)
--- NOTE | 2024-09-24 07:49 | DVHPN2 ---
Progress Note Date Seen: Sep 24, 2024 Medical Necessity Reason Pt with a Central, PICC or Fol: No Subjective Patient reports: No new complaints Objective vital signs Vital Sign Date Time Temp Pulse Resp B/P (MAP) Pulse Ox O2 Delivery O2 Flow Rate FiO2 09/24/24 06:45 76 14 100 09/24/24 06:39 4.0 09/24/24 06:39 Nasal Cannula* 36 09/24/24 05:00 98.0 120/78 (92) 98.0 Total Intake and Output 09/23/24 09/23/24 09/24/24 15:00 23:00 07:00 Intake Total 300 ml 950 ml 200 ml Balance 300 ml 950 ml 200 ml medications Current Medications Medications Dose Ordered Sig/Linden Route Start Time Stop Time Status Last Admin Dose Admin Acetaminophen/ Hydrocodone Bitart 1 tab Q4HP PRN PO 09/21/24 15:30 Ondansetron HCl 4 mg Q4HP PRN IV 09/21/24 15:30 Acetaminophen 650 mg Q6HP PRN PO 09/21/24 15:30 Diagnostic Test (Pha) 1 strip ACHS 09/21/24 17:00 09/24/24 06:11 1 STRIP Insulin Human Regular ACHS SC 09/21/24 17:00 09/24/24 06:11 3 UNITS Dextrose 50 ml UD PRN IV 09/21/24 15:30 Cancel Ceftriaxone Sodium 50 ml @ 100 mls/hr DAILY@09 IV 09/21/24 15:30 09/23/24 08:38 100 MLS/HR Azithromycin 250 ml @ 125 mls/hr DAILY IV 09/21/24 15:30 09/23/24 10:33 125 MLS/HR Methylprednisolone Sodium Succinate 80 mg BID IV 09/21/24 22:00 09/23/24 08:38 80 MG Albuterol 2.5 mg Q4HWA NEB 09/21/24 18:00 09/24/24 06:37 2.5 MG Ipratropium [place] 0.5 mg Q4HWA NEB 09/21/24 18:00 09/24/24 06:37 0.5 MG Zirconium Oxide 10 gm BID PO 09/23/24 14:30 09/23/24 21:58 10 GM Examination: GENERAL:Normal, CVS:Normal laboratory and microbiology Laboratory Tests 09/24/24 05:33 09/22/24 05:14 Test 09/24/24 05:33 Range/Units Serum Glucose 197 H 74-106 mg/dL Microbiology Date/Time Source Procedure Growth Status 09/21/24 14:06 Blood Blood Culture - Preliminary NO GROWTH AFTER 48 HOURS OF INCUBATION. Resulted Problem List/Assessment/Plan Problem List/Assessment/Plan ESRD on dialysis Acute on chronic hypoxic respiratory failure Pneumonia Morbid obesity hyperphosphatemia Antibiotics for pneumonia Hd today, heparin bolus in HD catheter to prevent clot elevated potassium medical treated yesterday renal diet, high phos renvela 3 per meal today Plan discussed with: Patient My Orders My Orders Orders - ADEBAYO FINLEY MD Procedure Category Date Status Time Hemodialysis Orders ORDERS 09/24/24 Transmitted 07:00 Dialysis Nursing OSWALDO 09/24/24 In Process Message 07:00 Document Fluid Input OSWALDO 09/24/24 In Process And Outpu 07:00 Epoetin Mejia-Epbx PHA 09/24/24 In Process (Retacrit) 21:00 Cardiac DIET 09/23/24 Transmitted Diet-2gna,Lofat,Lochol Lunch Communication Order ORDERS 09/23/24 Transmitted 11:04 Sodium Zirconium PHA 09/23/24 In Process Cyclosilicate 14:30 Electrocardigram EKG 09/23/24 Resulted 16:35 ADEBAYO FINLEY MD Sep 24, 2024 07:49
[2024-09-24] MEDS: SEVELAMER 800 MG TAB PO SCH (10:12)
--- NOTE | 2024-09-24 10:26 | DVHPN2 ---
Reviewed: Care Plan Changes from previous H/P or p: No Changes Respiratory: Shortness of breath Objective Vitals Vital Signs Date Time Temp Pulse Resp B/P (MAP) Pulse Ox O2 Delivery O2 Flow Rate FiO2 09/24/24 10:11 86 16 94 09/24/24 09:09 96.8 120/74 (89) 96.8 09/24/24 06:39 4.0 09/24/24 06:39 Nasal Cannula* 36 Intake/Output Intake and Output 09/24/24 07:00 Intake Total 1450 ml Balance 1450 ml Intake Oral 1150 ml IV Total 300 ml # Voids 2 # Bowel Movements 2 Medications Current Medications Medications Dose Ordered Sig/Linden Route Start Time Stop Time Status Last Admin Dose Admin Acetaminophen/ Hydrocodone Bitart 1 tab Q4HP PRN PO 09/21/24 15:30 Ondansetron HCl 4 mg Q4HP PRN IV 09/21/24 15:30 Acetaminophen 650 mg Q6HP PRN PO 09/21/24 15:30 Diagnostic Test (Pha) 1 strip ACHS 09/21/24 17:00 09/24/24 06:11 1 STRIP Insulin Human Regular ACHS SC 09/21/24 17:00 09/24/24 06:11 3 UNITS Dextrose 50 ml UD PRN IV 09/21/24 15:30 Cancel Ceftriaxone Sodium 50 ml @ 100 mls/hr DAILY@09 IV 09/21/24 15:30 09/24/24 09:00 100 MLS/HR Azithromycin 250 ml @ 125 mls/hr DAILY IV 09/21/24 15:30 09/23/24 10:33 125 MLS/HR Methylprednisolone Sodium Succinate 80 mg BID IV 09/21/24 22:00 09/24/24 10:10 80 MG Albuterol 2.5 mg Q4HWA NEB 09/21/24 18:00 09/24/24 10:10 2.5 MG Ipratropium [place] 0.5 mg Q4HWA NEB 09/21/24 18:00 09/24/24 10:10 0.5 MG Zirconium Oxide 10 gm BID PO 09/23/24 14:30 09/24/24 10:11 10 GM Sevelamer HCl 2,400 mg TIDWM PO 09/24/24 08:00 09/24/24 10:12 2,400 MG Laboratory Results Laboratory Tests 09/22/24 05:14 09/24/24 05:33 Chemistry Test 09/23/24 12:04 09/24/24 05:33 Calcium Level 8.9 mg/dL (8.7-10.4) 7.6 mg/dL (8.7-10.4) L Phosphorus Level 9.7 mg/dL (2.4-5.1) H Microbiology Microbiology Date/Time Source Procedure Growth Status 09/21/24 14:06 Blood Blood Culture - Preliminary NO GROWTH AFTER 48 HOURS OF INCUBATION. Resulted Labs and/or images reviewed: Labs reviewed by me, Image(s) reviewed by me Assessment/Plan Assessment/Plan Sepsis with elevated white count 28130 hypoxia secondary to pneumonia blood cultures negative Acute hypoxic respiratory failure oxygen by nasal cannula Community-acquired left lower pneumonia Gram-positive/Gram-negative: Rocephin azithromycin ESRD on hemodialysis: Consult by appreciated Use of home oxygen 2 L per mt Hypertension Asthma Diabetes type 2 Blanka test negative Flu test negative Time spent 60 minutes Advanced care planning time 20 minutes Patient is full code Plan discussed with: Patient Date of Service: Sep 24, 2024 Billing Provider: WESLEY GORDON MD Common Visit Codes: [id number] INP/OBS CARE(HIGH) WESLEY GORDON MD Sep 24, 2024 10:26
[2024-09-24] MEDS: EPOETIN ALFA-EPBX 10,000 UNIT/1ML VIAL SC ONE (21:14)
[2024-09-25] VITALS (10 sets, daily range): BP systolic 105–129; BP diastolic 73–85; PULSE 57–100; RESP 16–17; TEMP 96.7–97.8; O2SAT 91–100
[2024-09-25 05:44] LABS: Hematocrit 40.8 % (36.0-46.0); Hemoglobin 13.4 g/dL (12.2-16.2); Mean Corpuscular Hemoglobin 31.1 pg (28.0-32.0); Mean Corpuscular Volume 94.8 fL (80.0-100.0); Nucleated Red Blood Cells % 0.0 %
[2024-09-25 06:04] LABS: Alkaline Phosphatase 91 U/L (46-116); Anion Gap 15 (5-15); BUN/Creatinine Ratio 9.5 (10.0-20.0); Carbon Dioxide 23 mmol/L (20-31); Potassium 4.7 mmol/L (3.5-5.1); Total Protein 7.3 g/dL (5.7-8.2)
[2024-09-25 06:05] LABS: Albumin 3.6 g/dL (3.2-4.8)
[2024-09-25 06:06] LABS: Alanine Aminotransferase 9 U/L (7-40); Bilirubin, Total 0.2 mg/dL (0.2-1.0); Blood Urea Nitrogen 67 mg/dL (9-23); Calcium 7.8 mg/dL (8.7-10.4); Chloride 96 mmol/L (98-107); Glucose 204 mg/dL (74-106); Sodium 134 mmol/L (136-145)
[2024-09-25] MEDS ORDERED: PRED20TA2 PO (10:59)
[2024-09-25] MEDS ORDERED: AZIT500T66 PO (10:59)
[2024-09-25] MEDS ORDERED: ALBUAER3 IN (10:59)
--- NOTE | 2024-09-25 11:00 | DVHPN2 ---
Reviewed: Care Plan Changes from previous H/P or p: No Changes Respiratory: Shortness of breath Objective Vitals Vital Signs Date Time Temp Pulse Resp B/P (MAP) Pulse Ox O2 Delivery O2 Flow Rate FiO2 09/25/24 10:15 57 16 98 09/25/24 10:07 Nasal Cannula 4.0 09/25/24 10:07 36 09/25/24 09:56 97.5 97.5 09/25/24 09:00 129/85 (100) Intake/Output Intake and Output 09/25/24 07:00 Intake Total 1800 ml Balance 1800 ml Intake Oral 1500 ml IV Total 300 ml # Voids 3 # Bowel Movements 1 Medications Current Medications Medications Dose Ordered Sig/Linden Route Start Time Stop Time Status Last Admin Dose Admin Acetaminophen/ Hydrocodone Bitart 1 tab Q4HP PRN PO 09/21/24 15:30 Ondansetron HCl 4 mg Q4HP PRN IV 09/21/24 15:30 Acetaminophen 650 mg Q6HP PRN PO 09/21/24 15:30 Diagnostic Test (Pha) 1 strip ACHS 09/21/24 17:00 09/25/24 06:04 1 STRIP Insulin Human Regular ACHS SC 09/21/24 17:00 09/25/24 06:11 4 UNITS Dextrose 50 ml UD PRN IV 09/21/24 15:30 Cancel Ceftriaxone Sodium 50 ml @ 100 mls/hr DAILY@09 IV 09/21/24 15:30 09/25/24 09:38 100 MLS/HR Azithromycin 250 ml @ 125 mls/hr DAILY IV 09/21/24 15:30 09/25/24 10:36 125 MLS/HR Methylprednisolone Sodium Succinate 80 mg BID IV 09/21/24 22:00 09/25/24 09:39 80 MG Albuterol 2.5 mg Q4HWA NEB 09/21/24 18:00 09/25/24 10:07 2.5 MG Ipratropium [place] 0.5 mg Q4HWA NEB 09/21/24 18:00 09/25/24 10:07 0.5 MG Zirconium Oxide 10 gm BID PO 09/23/24 14:30 09/25/24 09:39 10 GM Sevelamer HCl 2,400 mg TIDWM PO 09/24/24 08:00 09/25/24 09:38 2,400 MG Laboratory Results Laboratory Tests 09/25/24 05:06 Chemistry Test 09/25/24 05:06 Albumin 3.6 g/dL (3.2-4.8) Calcium Level 7.8 mg/dL (8.7-10.4) L Phosphorus Level 7.2 mg/dL (2.4-5.1) H Total Protein 7.3 g/dL (5.7-8.2) LFT Test 09/25/24 05:06 Alanine Aminotransferase (ALT) 9 U/L (7-40) Alkaline Phosphatase 91 U/L (46-116) Aspartate Amino Transferase (AST) 9 U/L (13-40) L Total Bilirubin 0.2 mg/dL (0.2-1.0) Microbiology Microbiology Date/Time Source Procedure Growth Status 09/21/24 14:06 Blood Blood Culture - Preliminary NO GROWTH AFTER 72 HOURS OF INCUBATION. Resulted Labs and/or images reviewed: Labs reviewed by me, Image(s) reviewed by me Assessment/Plan Assessment/Plan Sepsis with elevated white count 20 K down to 11K as the time of discharge Acute hypoxic respiratory failure secondary to community-acquired pneumonia oxygen by nasal cannula Community-acquired left lower pneumonia Gram-positive/Gram-negative: Rocephin azithromycin ESRD on hemodialysis: Consult by appreciated Use of home oxygen 2 L per mt Hypertension Asthma Diabetes type 2 Blanka test negative Flu test negative Patient feels better and willing to go home Plan discussed with: Patient Date of Service: Sep 25, 2024 Billing Provider: WESLEY GORDON MD Common Visit Codes: [id number] INP/OBS CARE(HIGH) WESLEY GORDON MD Sep 25, 2024 11:00
--- NOTE | 2024-09-25 11:04 | DVHDS2 ---
Discharge Summary Date of Admission Sep 21, 2024 at 15:17 Date of Discharge: Sep 25, 2024 Admitting Diagnosis Shortness of breath Wounds: None Labs/Diagnostic Data: Laboratory Results Test 09/25/24 05:06 09/24/24 21:34 09/22/24 05:14 09/21/24 16:13 White Blood Count 11.2 10^3/uL (4.4-10.8) Red Blood Count 4.30 10^6/uL (4.0-5.20) Hemoglobin 13.4 g/dL (12.2-16.2) Hematocrit 40.8 % (36.0-46.0) Mean Corpuscular Volume 94.8 fL (80.0-100.0) Mean Corpuscular Hemoglobin 31.1 pg (28.0-32.0) Mean Corpuscular Hemoglobin Concent 32.9 g/dL (32.0-36.0) Red Cell Distribution Width 14.6 % (11.8-14.3) Platelet Count 331 10^3/uL (140-450) Mean Platelet Volume 7.5 fL (6.9-10.8) Neutrophils (%) (Auto) 95.4 % (37.0-80.0) Lymphocytes (%) (Auto) 2.3 % (10.0-50.0) Monocytes (%) (Auto) 2.2 % (0.0-12.0) Eosinophils (%) (Auto) 0.0 % (0.0-7.0) Basophils (%) (Auto) 0.1 % (0.0-2.0) Neutrophils # (Auto) 10.7 10 ^3/uL (1.6-8.6) Lymphocytes # (Auto) 0.3 10 ^3/uL (0.4-5.4) Monocytes # (Auto) 0.3 10 ^3/uL (0-1.3) Eosinophils # (Auto) 0 10 ^3/uL (0-0.8) Basophils # (Auto) 0 10 ^3/uL (0-0.2) Nucleated Red Blood Cells 0.0 % Sodium Level 134 mmol/L (136-145) Potassium Level 4.7 mmol/L (3.5-5.1) Chloride Level 96 mmol/L (98-107) Carbon Dioxide Level 23 mmol/L (20-31) Anion Gap 15 (5-15) Blood Urea Nitrogen 67 mg/dL (9-23) Creatinine 7.02 mg/dL (0.550-1.02) Glomerular Filtration Rate Calc 7 mL/min (>90) BUN/Creatinine Ratio 9.5 (10.0-20.0) Serum Glucose 204 mg/dL (74-106) Calcium Level 7.8 mg/dL (8.7-10.4) Phosphorus Level 7.2 mg/dL (2.4-5.1) Total Bilirubin 0.2 mg/dL (0.2-1.0) Aspartate Amino Transferase (AST) 9 U/L (13-40) Alanine Aminotransferase (ALT) 9 U/L (7-40) Alkaline Phosphatase 91 U/L (46-116) Total Protein 7.3 g/dL (5.7-8.2) Albumin 3.6 g/dL (3.2-4.8) POC Glucose 353 mg/dl (70-106) Hepatitis A IgM Antibody Negative Hepatitis B Surface Antigen Negative (Negative) Hepatitis B Core IgM Antibody Negative (Negative) Hepatitis C Antibody Negative (Negative) Influenza Type A Antigen Negative (Negative) Influenza Type B Antigen Negative (Negative) SARS-CoV-2 Antigen (Rapid) Negative (NEGATIVE) Test 09/21/24 16:07 09/21/24 13:18 09/21/24 13:01 Troponin I High Sensitivity 12 ng/L (</=34) Magnesium Level 1.7 mg/dL (1.6-2.6) Hemoglobin A1c 6.0 % A1C (<5.7) B-Type Natriuretic Peptide 298.01 pg/mL (0-100) Other Laboratory Tests 09/25/24 05:06 Brief Hx & Hospital Course: 43-year-old female with a ESRD on hemodialysis use of home oxygen hypertension asthma type 2 diabetes came in for shortness of breaths. Blanka test negative flu test negative found to have community-acquired pneumonia treated with the Rocephin azithromycin albuterol Atrovent Solu-Medrol received dialysis by route process administrator[place] [id number] [place] [id number] at the time of discharge. Patient feels better and wants to go home. Discharged home on azithromycin prednisone and albuterol MDI. She will follow up with the primary Dr and route process administrator for dialysis. currently on 2 L of oxygen at the time of discharge which is her usual requirement at home Consults/Reason for consult Nephrology Operations or Procedures Hemodialysis Condition at Discharge: Fair Final Diagnosis/Problems List Sepsis with elevated white count 20 K down to 11K as the time of discharge Acute hypoxic respiratory failure secondary to community-acquired pneumonia oxygen by nasal cannula Community-acquired left lower pneumonia Gram-positive/Gram-negative: Rocephin azithromycin ESRD on hemodialysis: Consult by appreciated Use of home oxygen 2 L per mt Hypertension Asthma Diabetes type 2 Blanka test negative Flu test negative Discharge Disposition: Home Discharge Instruct/Medications Diet: Cardiac 2g Na,low cholest Activity: Light activity Follow Up/Referral: Follow up with the primary Dr in one week Follow up with the route process administrator for regular dialysis Resume all previous home medication Medications: Azithromycin Prednisone Ventolin MDI [facility] Scheduled Albuterol Sulfate (Ventolin Mdi), 90 MCG IN QID Azithromycin (Azithromycin), 1 TAB PO DAILY Prednisone (Prednisone), 20 MG PO BID 39 (Time taken for discharge summary 39 minutes) Discharge Statement: "Patient was advised to return to the ER or call 911 if any headaches, dizziness, shortness of breath, chest pain, abdominal pain, bleeding, fevers, or worsening of medical condition. Patient was counseled about treatment plan, medications, possible side effects, patientverbalized understanding. All questions were answered to the best of my ability. This discharge took greater then 30 minutes in planning, reviewing documentation, counseling the patient, and discussing with other team members." ASSESSMENT ASSESSMENT Hospital Course Uneventful Assessment Sepsis with elevated white count 20 K down to 11K as the time of discharge Acute hypoxic respiratory failure secondary to community-acquired pneumonia oxygen by nasal cannula Community-acquired left lower pneumonia Gram-positive/Gram-negative: Rocephin azithromycin ESRD on hemodialysis: Consult by appreciated Use of home oxygen 2 L per mt Hypertension Asthma Diabetes type 2 Blanka test negative Flu test negative Date of Service: Sep 25, 2024 Billing Provider: WESLEY GORDON MD Common Visit Codes: 49427-VRZ/OBS DISCH DAY >30min WESLEY GORDON MD Sep 25, 2024 11:04
--- NOTE | 2024-09-25 13:13 | DVHPN2 ---
Progress Note Date Seen: Sep 25, 2024 Medical Necessity Reason Pt with a Central, PICC or Fol: No Subjective Patient reports: Feels better Objective vital signs Vital Sign Date Time Temp Pulse Resp B/P (MAP) Pulse Ox O2 Delivery O2 Flow Rate FiO2 09/25/24 10:15 57 16 98 09/25/24 10:07 Nasal Cannula 4.0 09/25/24 10:07 36 09/25/24 09:56 97.5 97.5 09/25/24 09:00 129/85 (100) Total Intake and Output 09/24/24 09/24/24 09/25/24 15:00 23:00 07:00 Intake Total 300 ml 850 ml 650 ml Balance 300 ml 850 ml 650 ml medications Current Medications Medications Dose Ordered Sig/Linden Route Start Time Stop Time Status Last Admin Dose Admin Acetaminophen/ Hydrocodone Bitart 1 tab Q4HP PRN PO 09/21/24 15:30 Ondansetron HCl 4 mg Q4HP PRN IV 09/21/24 15:30 Acetaminophen 650 mg Q6HP PRN PO 09/21/24 15:30 Diagnostic Test (Pha) 1 strip ACHS 09/21/24 17:00 09/25/24 11:51 1 STRIP Insulin Human Regular ACHS SC 09/21/24 17:00 09/25/24 11:52 8 UNITS Dextrose 50 ml UD PRN IV 09/21/24 15:30 Cancel Ceftriaxone Sodium 50 ml @ 100 mls/hr DAILY@09 IV 09/21/24 15:30 09/25/24 09:38 100 MLS/HR Azithromycin 250 ml @ 125 mls/hr DAILY IV 09/21/24 15:30 09/25/24 10:36 125 MLS/HR Methylprednisolone Sodium Succinate 80 mg BID IV 09/21/24 22:00 09/25/24 09:39 80 MG Albuterol 2.5 mg Q4HWA NEB 09/21/24 18:00 09/25/24 10:07 2.5 MG Ipratropium Wayne 0.5 mg Q4HWA NEB 09/21/24 18:00 09/25/24 10:07 0.5 MG Zirconium Oxide 10 gm BID PO 09/23/24 14:30 09/25/24 09:39 10 GM Sevelamer HCl 2,400 mg TIDWM PO 09/24/24 08:00 09/25/24 11:50 2,400 MG Examination: GENERAL:Normal, CVS:Normal, MSK:Normal laboratory and microbiology Laboratory Tests 09/25/24 05:06 Test 09/25/24 05:06 Range/Units Serum Glucose 204 H 74-106 mg/dL Microbiology Date/Time Source Procedure Growth Status 09/21/24 14:06 Blood Blood Culture - Preliminary NO GROWTH AFTER 72 HOURS OF INCUBATION. Resulted Problem List/Assessment/Plan Problem List/Assessment/Plan ESRD on dialysis Acute on chronic hypoxic respiratory failure Pneumonia Morbid obesity hyperphosphatemia renal diet, high phos renvela 3 per meal today HD tomorrow if remains admitted Plan discussed with: Patient Total Time (mins): 27 ADEBAYO FINLEY MD Sep 25, 2024 13:13
== END 2024-09-25 15:00 | disposition home or self-care (01) | DRG 720 ==
LOC: ER 12:47 → OVERFLOW 15:17 → TELE-EAST 18:21
PROVIDERS: ADMIT Family Medicine; ATTEND Family Medicine
PROC: 5A1D70Z Performance of Urinary Filtration, Intermittent, Less than 6 Hours Per Day (ICD-10-PCS; principal; 2024-09-22)
PROC: 5A1D70Z Performance of Urinary Filtration, Intermittent, Less than 6 Hours Per Day (ICD-10-PCS; 2024-09-24)
DX: A41.59 Other Gram-negative sepsis (principal); J96.21 Acute and chronic respiratory failure with hypoxia; J15.69 Pneumonia due to other Gram-negative bacteria; J15.9 Unspecified bacterial pneumonia; I12.0 Hypertensive chronic kidney disease with stage 5 chronic kidney disease or end stage renal disease; N18.6 End stage renal disease; E83.39 Other disorders of phosphorus metabolism; J44.1 Chronic obstructive pulmonary disease with (acute) exacerbation; J45.901 Unspecified asthma with (acute) exacerbation; J44.0 Chronic obstructive pulmonary disease with (acute) lower respiratory infection; Z20.822 Contact with and (suspected) exposure to COVID-19; E11.22 Type 2 diabetes mellitus with diabetic chronic kidney disease; Z99.81 Dependence on supplemental oxygen; E66.01 Morbid (severe) obesity due to excess calories; Z68.41 Body mass index [BMI] 40.0-44.9, adult; Z99.2 Dependence on renal dialysis; M94.0 Chondrocostal junction syndrome [Tietze]; Z98.891 History of uterine scar from previous surgery; Z90.49 Acquired absence of other specified parts of digestive tract; Z83.3 Family history of diabetes mellitus
CPT/HCPCS: 36415; 71045; 80048; 80053; 80074; 82962; 83036; 83735; 83880; 84100; 84484; 85025; 87040; 87426; 87804; 90935; 93005; 94640; 96365; 96375; G0378; J1642; J1815; J2543